=== PATIENT | female | born 1980 | race Caucasian/White ===

== ENCOUNTER → 2018-09-08 | Outpatient (CLI) | payer OTHER ==
[2018-09-08 16:21] LABS: Anion Gap 6.6 mmol/L (4.00-12.00); Calcium 9.8 mg/dL (8.7-10.3); Carbon Dioxide 26.4 mmol/L (21.6-31.8); Potassium 4.5 mmol/L (3.5-5.5)
== END | disposition home or self-care (01) ==
LOC: LABWHC1 08:57
PROVIDERS: ATTEND Urology
DX: N30.01 Acute cystitis with hematuria (principal)
CPT/HCPCS: 36415; 80048; 87086; 88108

== ENCOUNTER → 2018-11-02 | Outpatient (CLI) | payer OTHER ==
--- NOTE | 2018-11-02 12:38 | CT ---
EXAMINATION TYPE: CT urogram wo/w con DATE OF EXAM: 11/02/2018 COMPARISON: None HISTORY: 38-year-old female Blood in urine TECHNIQUE: Contiguous axial scanning of the abdomen and pelvis performed without and with IV Contrast , patient injected with 100 mL of Isovue 300. Delayed images through the kidneys and bladder were obt ained. Coronal/sagittal reconstructions performed. 3-D reconstructions generated on a dedicated [employer] workstation. CT DLP: 882.7 mGycm Automated exposure control for dose reduction was used. FINDINGS: Heart normal size without pericardial effusion. Lung bases clear without pleural effusion. Approximately 3 hypodense lesions within the liver measuring 1.1 cm, 0.9 cm, and 0.6 cm. These become smaller and less apparent on the more delayed scans suggesting possible small atypical hemangiomas. Portal venous system is patent. No biliary ductal dilatation. Gallbladder, adrenal glands, kidneys, and pancreas appear within normal limits. Tiny fatty umbilical hernia. Prominent fluid-filled small bowel loops throughout the abdomen. No dilated small bowel, free fluid, or free air. Mild overall stool burden. Normal appendix. No pericolonic inflammatory change. Uterus is anteverted. Both ovaries are visualized. Follicular change in the right ovary. Mild cul-de- sac free fluid likely physiologic. No suspicious filling defect identified within either renal collecting system. No suspicious renal le bryant or hydronephrosis. No nephrolithiasis identified. Only the distalmost aspects of the bilateral ureters are not opacified limiting their assessment. The posterior two thirds of the opacified bladder show no suspicious mural based filling defect. Bones: Mild facet arthropathy lower lumbar spine. IMPRESSION: 1. NO NEPHROLITHIASIS, SUSPICIOUS KIDNEY LESION, ABNORMAL FILLING DEFECT WITHIN THE RENAL COLLECTING SYSTEMS, OR ALONG THE COURSE OF EITHER URETER. ONLY THE DISTALMOST BILATERAL URETERS ARE NONOPACIFIED AND LIMITED. NO HYDRONEPHROSIS. 2. PROMINENT FLUID-FILLED SMALL BOWEL LOOPS THROUGHOUT THE ABDOMEN ARE NONSPECIFIC BUT COULD REFLECT A MILD GENERALIZED ILEUS OR ENTERITIS. 3. 3 HYPODENSE LESIONS WITHIN THE LIVER MEASURING UP TO 1.1 CM ARE NONSPECIFIC. ATYPICAL HEMANGIOMAS ARE FAVORED. 6 MONTH FOLLOW-UP ULTRASOUND CAN EXCLUDE ANY ENLARGING LESIONS. 4. MILD CUL-DE-SAC FREE FLUID LIKELY PHYSIOLOGIC.
== END | disposition home or self-care (01) ==
LOC: RADCTMAIN 10:22
PROVIDERS: ATTEND Urology
DX: R31.21 Asymptomatic microscopic hematuria (principal)
CPT/HCPCS: 74178; 74400; Q9967

== ENCOUNTER 2018-12-09 08:25 | Day surgery (SDC) | payer OTHER ==
[2018-12-04 13:09] VITALS: BMI 22.5
[~2018-12-09 08:25] MED LIST: LACTATED RINGERS 1,000 ML IV SCH; LIDOCAINE 1% 20 ML VIAL (10MG/ML) FOR IV START INTRADERMA PRN
[2018-12-09 09:12] VITALS: TEMP 98.7
[2018-12-09] MEDS ORDERED: LIDOCAINE 1% INJ 10MG/ML (20 ML MDV) ONE (09:33)
[2018-12-09] MEDS ORDERED: PROPOFOL 10 MG/ML 20 ML VIAL IV ONE (09:33)
--- NOTE | 2018-12-09 09:54 | P.PCN ---
Date of Procedure: 12/09/18 Procedure(s) Performed: Brief history: Patient is a pleasant 38-year-old white female scheduled for an elective upper endoscopy as well as colonoscopy as a part of evaluation of abdominal pain, lower abdominal cramping and alternating diarrhea and constipation of several years duration. Her symptoms have been progressively getting worse in the last 6 months. Procedure performed: Esophagogastroduodenoscopy with biopsy Colonoscopy and biopsy Preoperative diagnosis: Epigastric pain Lower abdominal pain and change in bowel habits Anesthesia: MAC Procedure: After informed consent was obtained from the patient was brought into the endoscopy unit and IV sedation was administered by anesthesia under continuous monitoring. Initially upper endoscopy was done. The Olympus GF 160 video endoscope was inserted inserted into the mouth and esophagus intubated without any difficulty and was gradually advanced into the stomach and duodenum and carefully examined. Biopsies were done from the duodenum to rule out celiac disease. The bulb and second part of the duodenum appeared normal. The scope was then withdrawn into the stomach adequately insufflated with air and upon careful examination the antrum had patchy areas of the prepyloric area and biopsies were done from this area. The body, cardia and fundus appeared normal. The scope was then withdrawn into the esophagus. The GE junction was located at 40 cm to the incisors. It appeared regular with no erythema erosions or ulcerations. Biopsies were done from the distal esophagus.Rest of the esophagus appeared normal. Patient tolerated the procedure well. At this time the patient continued to remain sedation. Initial digital rectal examination was normal. Olympus CF 160 video colonoscope was then inserted into the rectum and gradually advanced to the cecum without any difficulty. Careful examination was performed as the scope was gradually being withdrawn. The prep was excellent. Terminal ileum was intubated and 20 cm visualized and appeared normal. Random biopsies were done from the terminal ileum. The cecum, ascending colon, transverse colon, descending colon, sigmoid colon and rectum appeared normal. Retroflexion was performed in the rectum and no lesions were noted. random biopsies were done from ascending and descending colon to rule out microscopic/collagenous colitis. Patient tolerated the procedure well. Impression: 1. Upper endoscopy revealed minimal antral gastritis but no evidence of esophagitis or peptic ulcer disease. 2. Colonoscopy was essentially within normal limits with no evidence of colitis or colorectal neoplasia Recommendations: Findings of this examination were discussed with the patient as well a her family. She was advised to follow with the biopsy results. Her symptoms are suggestive of irritable bowel syndrome.. Advised to continue with a high-fiber diet and take fiber supplements a regular basis and regulate bowel movements.]
[2018-12-09 10:24] VITALS: BP 126/82; PULSE 76; RESP 18
== END 2018-12-09 10:52 | disposition home or self-care (01) ==
LOC: ORWHC2ENDO 08:25
PROVIDERS: ATTEND Internal Medicine Gastroenterology
DX: K29.50 Unspecified chronic gastritis without bleeding (principal); J45.909 Unspecified asthma, uncomplicated; K21.9 Gastro-esophageal reflux disease without esophagitis; Z88.1 Allergy status to other antibiotic agents; Z88.2 Allergy status to sulfonamides; R19.4 Change in bowel habit
CPT/HCPCS: 81025; 88305; 45380; 43239; J2001; J2704

== ENCOUNTER → 2018-12-15 | Outpatient (CLI) | payer OTHER ==
--- NOTE | 2018-12-15 12:18 | US ---
EXAMINATION TYPE: US abdomen complete DATE OF EXAM: 12/15/2018 COMPARISON: CT dated 11/02/2018 CLINICAL HISTORY: R10.84 ABD PAIN. EXAM MEASUREMENTS: Liver Length: 11.9 cm Gallbladder Wall: 0.2 cm CBD: 0.3 cm Spleen: 9.6 cm Right Kidney: 11.0 x 3.2 x 4.5 cm Left Kidney: 10.9 x 5.3 x 4.8 cm Pancreas: wnl Liver: hemangiomas seen on CT not identified on today's ultrasound, liver wnl Gallbladder: wnl Evidence for sonographic Nuñez's sign: No CBD: wnl Spleen: wnl Right Kidney: wnl Left Kidney: Inferior pole obscured by bowel gas Upper IVC: wnl Abd Aorta: wnl The liver is homogenous. The intrahepatic portion of the IVC and proximal abdominal aorta are within normal limits. There is no evidence of cholelithiasis. Common bile duct is unremarkable. The visu alized portions of the pancreas are homogenous. The spleen is unremarkable. Kidneys are symmetric a nd free of hydronephrosis. No renal lesions are seen. IMPRESSION: 1. The previously seen probable hemangiomas on the prior CT urogram dated 11/02/2018 are not seen on u ltrasound. 2. No sonographic evidence of cholelithiasis nor acute cholecystitis. Unremarkable abdominal ultrasou nd.
== END | disposition home or self-care (01) ==
LOC: RADUSWWP 10:42
PROVIDERS: ATTEND Family Medicine
DX: R10.84 Generalized abdominal pain (principal)
CPT/HCPCS: 76700

== ENCOUNTER → 2018-12-30 | Outpatient (CLI) | payer OTHER ==
--- NOTE | 2018-12-30 08:56 | NM ---
EXAMINATION TYPE: NM hepatobiliary w EF DATE OF EXAM: 12/30/2018 COMPARISON: NONE HISTORY: Abdominal pain TECHNIQUE: After the intravenous administration of 4.71 mCi Tc 99m Mebrofenin hepatobiliary scintigra phy is performed. Immediate images post injection. FINDINGS: There is satisfactory initial accumulation of tracer by the liver. The gallbladder is visualized wit hin 16 minutes. The small bowel activity is noted within 20 minutes. At one hour 8 ounces of oral e nsure plus is given to mimic CCK and gallbladder ejection fraction is calculated at 60 %, in the norm al range. Therefore there is no scintigraphic evidence of cystic or common bile duct obstruction to suggest acute cholecystitis or gallbladder dyskinesia. IMPRESSION: Exam is within normal limits.
== END | disposition home or self-care (01) ==
LOC: RADNMMAIN 06:52
PROVIDERS: ATTEND Family Medicine
DX: R10.84 Generalized abdominal pain (principal)
CPT/HCPCS: 78226; A9537

== ENCOUNTER → 2019-04-05 | Outpatient (CLI) | payer SELFPAY | END | disposition home or self-care (01) | LOC: LABWHC1 08:40 | PROVIDERS: ATTEND Family Medicine | DX: K20.0 Eosinophilic esophagitis (principal) | CPT/HCPCS: 36415 ==

== ENCOUNTER → 2019-10-22 | Outpatient (CLI) | payer OTHER ==
--- NOTE | 2019-10-26 10:28 | MM ---
Reason for exam: screening (asymptomatic). Baseline mammogram. Physical Findings: Nurse did not find any significant physical abnormalities on exam. MG Screening Mammo w CAD Bilateral CC, MLO, and XCCL view(s) were taken. The breast tissue is heterogeneously dense. This may lower the sensitivity of mammography. There is no discrete abnormality. Central right CC view does not persist on 3D. Subareolar left MLO asymmetry does not persist on 3D images. These results were verbally communicated with the patient and result sheet given to the patient on 10/22/19. ASSESSMENT: Benign, BI-RAD 2 RECOMMENDATION: Routine screening mammogram of both breasts in 1 year.
== END | disposition home or self-care (01) ==
LOC: RADMAMWWP 11:10
PROVIDERS: ATTEND Physician Assistant
DX: Z12.31 Encounter for screening mammogram for malignant neoplasm of breast (principal)
CPT/HCPCS: 77067

== ENCOUNTER → 2020-07-24 | Outpatient (CLI) | payer OTHER ==
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
== END ==
LOC: RADUSWWP 07:37
DX: K76.9 Liver disease, unspecified (principal)
CPT/HCPCS: 76700

== ENCOUNTER → 2020-10-27 | Outpatient (CLI) | payer OTHER ==
--- NOTE | 2020-10-31 08:44 | MM ---
Reason for exam: screening (asymptomatic). Last mammogram was performed 1 year ago. Physical Findings: A clinical breast exam by your physician is recommended on an annual basis and results should be correlated with mammographic findings. MG 3D Screening Mammo W/Cad Bilateral CC and MLO view(s) were taken. Prior study comparison: October 22, 2019, bilateral MG screening mammo w CAD. The breast tissue is heterogeneously dense. This may lower the sensitivity of mammography. Partially obscured nodularity lateral right CC view becomes apparent on 3D images. ASSESSMENT: Incomplete: need additional imaging evaluation, BI-RAD 0 RECOMMENDATION: Special view mammogram of the right breast. (3D) If lesion persists on supplemental views, image directed ultrasound is recommended. [facility] will attempt to contact patient to return for supplemental views and ultrasound if indicated.
== END | disposition home or self-care (01) ==
LOC: RADMAMWWP 09:54
PROVIDERS: ATTEND Family Medicine
DX: Z12.31 Encounter for screening mammogram for malignant neoplasm of breast (principal)
CPT/HCPCS: 77063; 77067

== ENCOUNTER → 2020-11-02 | Outpatient (CLI) | payer OTHER ==
--- NOTE | 2020-11-02 08:47 | MM ---
Reason for exam: additional evaluation requested from abnormal screening. Last mammogram was performed less than 1 month ago. Physical Findings: Nurse did not find any significant physical abnormalities on exam. MG 3D Work Up W/Cad RT Spot compression CC and LM view(s) were taken of the right breast. Prior study comparison: October 27, 2020, bilateral MG 3d screening mammo w/cad. October 22, 2019, bilateral MG screening mammo w CAD. The breast tissue is heterogeneously dense. This may lower the sensitivity of mammography. Previously seen right lateral asymmetry pliable and presumably represented overlapping fibroglandular tissue. These results were verbally communicated with the patient and result sheet given to the patient on 11/02/20. ASSESSMENT: Negative, BI-RAD 1 RECOMMENDATION: Return to routine screening mammogram schedule for both breasts.
== END | disposition home or self-care (01) ==
LOC: RADMAMWWP 07:33
PROVIDERS: ATTEND Family Medicine
DX: R92.8 Other abnormal and inconclusive findings on diagnostic imaging of breast (principal)
CPT/HCPCS: 77061; 77065

== ENCOUNTER → 2020-12-27 | Outpatient (CLI) | payer OTHER ==
--- NOTE | 2020-12-27 08:30 | US ---
EXAMINATION TYPE: US liver DATE OF EXAM: 12/27/2020 COMPARISON: US 07/24/20 CLINICAL HISTORY: R10.84 Generalized abdominal pain. EXAM MEASUREMENTS: Liver Length: 15.5 cm Gallbladder Wall: 0.1 cm CBD: 0.3 cm Right Kidney: 11.8 x 4.7 x 3.5 cm Pancreas: wnl Liver: Echogenic area seen again = 1.7 x 1.5 x 1.5 cm Gallbladder: wnl Evidence for sonographic Nuñez's sign: No CBD: wnl Right Kidney: No hydronephrosis or masses seen IMPRESSION: Echogenic area within the liver is unchanged and may reflect hemangioma.
== END | disposition home or self-care (01) ==
LOC: RADUSWWP 07:23
DX: R93.2 Abnormal findings on diagnostic imaging of liver and biliary tract (principal)
CPT/HCPCS: 76705

== ENCOUNTER 2022-11-02 13:00 | Emergency (ER) | payer OTHER ==
[2022-11-02 13:11] VITALS: BP 131/87; PULSE 89; TEMP 97.8
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
[2022-11-02] MEDS ORDERED: cefTRIAXone 1,000 MG VIAL (IM USE) IM STA (14:24)
[2022-11-02] MEDS ORDERED: DOXYCYCLINE 100 MG CAP PO STA (14:24)
[2022-11-02] MEDS ORDERED: metroNIDAZOLE 500 MG TAB PO STA (14:25)
[2022-11-02 14:28] LABS: Appearance,Urine Cloudy (Clear); Bacteria,Urine Rare /hpf; Bilirubin,Urine Negative (Negative); Blood,Urine Negative (Negative); Color,Urine Light Yellow; Glucose,Urine (UA) Negative (Negative); Ketones,Urine 1+ (Negative); Leukocyte Esterase,Urine Moderate (Negative); Mucus,Urine Occasional /hpf; Nitrite,Urine Negative (Negative); PH, Urine 5.5 (5.0-8.0); Protein,Urine Negative (Negative); RBC,Urine 1 /hpf (0-5); Specific Gravity,Urine 1.008 (1.001-1.035); Squamous Epithelial Cell,Urine 4 /hpf (0-4); Urobilinogen,Urine <2.0 mg/dL (<2.0); WBC,Urine 5 /hpf (0-5)
[2022-11-02 14:59] VITALS: RESP 16
[2022-11-04 16:14] LABS: N. gonorrhoeae,PCR Negative (Negative)
[2022-11-04 16:28] LABS: C. trachomatis,PCR Negative (Negative)
== END 2022-11-02 14:58 | disposition home or self-care (01) ==
LOC: EC 13:00
DX: T74.21XA Adult sexual abuse, confirmed, initial encounter (principal); F31.9 Bipolar disorder, unspecified; F41.9 Anxiety disorder, unspecified; K21.9 Gastro-esophageal reflux disease without esophagitis; M19.90 Unspecified osteoarthritis, unspecified site; F17.290 Nicotine dependence, other tobacco product, uncomplicated; Z79.899 Other long term (current) drug therapy; Z88.0 Allergy status to penicillin; Z88.1 Allergy status to other antibiotic agents; Z88.2 Allergy status to sulfonamides; Z88.8 Allergy status to other drugs, medicaments and biological substances
CPT/HCPCS: 81001; 81025; 87491; 87591; 99284; 96372; J0696

== ENCOUNTER 2023-03-07 01:47 | Emergency (ER) | payer OTHER ==
[2023-03-07 02:04] VITALS: BP 132/89; PULSE 79; RESP 16; TEMP 97.6
[2023-03-07] MEDS ORDERED: DEXAMETHASONE SOD PHOSPHATE 10 MG/ML 1 ML VIAL IM STA (02:23)
--- NOTE | 2023-03-07 02:26 | ED ---
General Adult HPI - General Chief complaint: Skin/Abscess/Foreign Body Stated complaint: Rash Time Seen by Provider: 03/07/23 02:14 Source: patient, RN notes reviewed, old records reviewed Mode of arrival: ambulatory Limitations: no limitations - History of Present Illness Initial comments: 42-year-old female with chief complaint of rash. Rash is erythematous, raised, very itchy. Patient currently on metronidazole for BV. She states she has one more dose remaining. She does not have a prior known ALLERGY to metronidazole but this is the only new medication that she is on. No difficulty breathing. No vomiting. No fever. - Related Data Home Medications Medication Instructions Recorded Confirmed Albuterol Inhaler [Ventolin Hfa 1 - 2 puff INHALATION RT-Q6H PRN 12/04/18 12/09/18 Inhaler] Azelastine ? Nasal [place] 2 sprays EA NOSTRIL BID 12/04/18 Cranberry W Vit C 1 tab PO DAILY 12/04/18 Ibuprofen [Advil] 400 mg PO DIRECTED PRN 12/04/18 12/09/18 Loratadine [Claritin] 10 mg PO DAILY 12/04/18 12/09/18 Omeprazole 20 mg PO BID-W/MEALS 12/04/18 12/09/18 Previous Rx's Medication Instructions Recorded metroNIDAZOLE [Flagyl] 500 mg PO BID #14 tab 06/15/22 Doxycycline [Vibramycin] 100 mg PO BID 7 Days #14 capsule 11/02/22 metroNIDAZOLE [Flagyl] 500 mg PO BID #14 tab 11/02/22 Allergies Allergy/AdvReac Type Severity Reaction Status Date / Time sulfamethoxazole Allergy Unknown Hives- Verified 03/07/23 01:48 [From Bactrim] takes with benadryl trimethoprim [From Bactrim] Allergy Unknown Hives- Verified 03/07/23 01:48 takes with benadryl ciprofloxacin Allergy Anaphylaxis Verified 03/07/23 01:48 amoxicillin [From Augmentin] AdvReac Unknown Diarrhea Verified 03/07/23 01:48 clavulanic acid AdvReac Unknown Diarrhea Verified 03/07/23 01:48 [From Augmentin] Review of Systems ROS Statement: Those systems with pertinent positive or pertinent negative responses have been documented in the HPI. ROS Other: All systems not noted in ROS Statement are negative. Past Medical History Past Medical History: Asthma, GERD/Reflux, Osteoarthritis (OA) Additional Past Medical History / Comment(s): exercise induced asthma, seasonal allergies, Hx of frequent UTI's., states having constipation/diarrhea, stomach pain and blood in stool. History of Any Multi-Drug Resistant Organisms: None Reported Past Surgical History: Tonsillectomy, Tubal Ligation, Uterine Ablation Additional Past Surgical History / Comment(s): D and C 12/27/22 Past Anesthesia/Blood Transfusion Reactions: No Reported Reaction, Motion Sickness Past Psychological History: Anxiety, Bipolar, Depression, PTSD Smoking Status: Vaper Past Alcohol Use History: Occasional Past Drug Use History: None Reported - Past Family History Mother Family Medical History: No Reported History General Exam Limitations: no limitations General appearance: alert, in no apparent distress Head exam: Present: atraumatic, normocephalic Eye exam: Present: normal appearance, PERRL ENT exam: Present: normal exam Neck exam: Present: normal inspection. Absent: tenderness, meningismus Respiratory exam: Present: normal lung sounds bilaterally. Absent: respiratory distress, wheezes Cardiovascular Exam: Present: regular rate, normal rhythm GI/Abdominal exam: Present: soft. Absent: distended, tenderness, guarding Neurological exam: Present: alert, oriented X3 Skin exam: Present: warm, dry, rash, urticaria (Urticarial rash on the extremities and torso) Course Vital Signs 03/07/23 01:48 Temperature 97.6 F Pulse Rate 79 Respiratory 16 Rate Blood Pressure 132/89 O2 Sat by Pulse 97 Oximetry Medical Decision Making - Medical Decision Making Was pt. sent in by a medical professional or institution (, PA, FURNACE CHECKER, urgent care, hospital, or intermediate...) When possible be specific @ -No Did you speak to anyone other than the patient for history (EMS, parent, family, police, friend...)? What history was obtained from this source @ -No Did you review nursing and triage notes (agree or disagree)? Why? @ -I reviewed and agree with nursing and triage notes Were old charts reviewed (outside hosp., previous admission, EMS record, old EKG, old radiological studies, urgent care reports/EKG's, intermediate records)? Report findings @ -No old charts were reviewed Differential Diagnosis (chest pain, altered mental status, abdominal pain women, abdominal pain men, vaginal bleeding, weakness, fever, dyspnea, syncope, headache, dizziness, GI bleed, back pain, seizure, CVA, palpatations, mental health, musculoskeletal)? @ -[Drug reaction, urticaria, Greyson Dorman's EKG interpreted by me (3pts min.). @ -As above X-rays interpreted by me (1pt min.). @ -None done CT interpreted by me (1pt min.). @ -None done U/S interpreted by me (1pt. min.). @ -None done What testing was considered but not performed or refused? (CT, X-rays, U/S, labs)? Why? @ -None What meds were considered but not given or refused? Why? @ -None Did you discuss the management of the patient with other professionals (professionals i.e. , PA, FURNACE CHECKER, lab, RT, psych nurse, social worker clinical, rn training, teacher, supply requirements officer, disease case manager)? Give summary @ -No Was smoking cessation discussed for >3mins.? @ -No Was critical care preformed (if so, how long)? @ -No Were there social determinants of health that impacted care today? How? (Homelessness, low income, unemployed, alcoholism, drug addiction, transportation, low edu. Level, literacy, decrease access to med. care, [facility], rehab)? @ -No Was there de-escalation of care discussed even if they declined (Discuss DNR or withdrawal of care, Hospice)? DNR status @ -No What co-morbidities impacted this encounter? (DM, HTN, Smoking, COPD, CAD, Cancer, CVA, ARF, Chemo, Hep., AIDS, mental health diagnosis, sleep apnea, morbid obesity)? @ -None Was patient admitted / discharged? Hospital course, mention meds given and route, prescriptions, significant lab abnormalities, going to OR and other pertinent info. @ Patient will discontinue metronidazole. She's given a dose of steroids in the emergency department and will take Benadryl when she gets home. She is given strict return parameters will monitor closely and follow-up with her primary care provider. Undiagnosed new problem with uncertain prognosis? @ -No Drug Therapy requiring intensive monitoring for toxicity (Heparin, Nitro, Insulin, Cardizem)? @ -No Were any procedures done? @ -No Diagnosis/symptom? @ -Hives Acute, or Chronic, or Acute on Chronic? @ -[Acute Uncomplicated (without systemic symptoms) or Complicated (systemic symptoms)? @ -default Side effects of treatment? @ -No Exacerbation, Progression, or Severe Exacerbation? @ -No Poses a threat to life or bodily function? How? (Chest pain, [place], [place], pneumonia, PE, COPD, DKA, ARF, appy, cholecystitis, CVA, Diverticulitis, Homicidal, Suicidal, threat to staff... and all critical care pts) @ -[Low risk at this time Disposition Clinical Impression: Urticaria Disposition: HOME SELF-CARE Condition: Good Is patient prescribed a controlled substance at d/c from ED?: No Referrals: [facility],Clinic [Primary Care Provider] - 1-2 days Time of Disposition: 02:26
== END 2023-03-07 02:30 | disposition home or self-care (01) ==
LOC: EC 01:47
DX: L50.9 Urticaria, unspecified (principal); J45.909 Unspecified asthma, uncomplicated; K21.9 Gastro-esophageal reflux disease without esophagitis; F17.290 Nicotine dependence, other tobacco product, uncomplicated; M19.90 Unspecified osteoarthritis, unspecified site; Z79.1 Long term (current) use of non-steroidal anti-inflammatories (NSAID); Z79.899 Other long term (current) drug therapy; Z88.2 Allergy status to sulfonamides; Z88.6 Allergy status to analgesic agent; Z88.8 Allergy status to other drugs, medicaments and biological substances; Z88.0 Allergy status to penicillin; Z88.1 Allergy status to other antibiotic agents; Z86.59 Personal history of other mental and behavioral disorders
CPT/HCPCS: 99282; 96372; J1100

== ENCOUNTER 2023-03-29 02:45 | Emergency (ER) | payer OTHER ==
[2023-03-29 03:06] VITALS: BP 133/94; PULSE 102; RESP 18; TEMP 98.2
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
== END 2023-03-29 03:54 | disposition home or self-care (01) ==
LOC: EC 02:45
DX: F10.129 Alcohol abuse with intoxication, unspecified (principal); K21.9 Gastro-esophageal reflux disease without esophagitis; J45.909 Unspecified asthma, uncomplicated; F17.290 Nicotine dependence, other tobacco product, uncomplicated; Z79.899 Other long term (current) drug therapy; Z88.0 Allergy status to penicillin; Z88.1 Allergy status to other antibiotic agents; Z88.2 Allergy status to sulfonamides
CPT/HCPCS: 99282

== ENCOUNTER → 2023-06-27 | Outpatient (CLI) | payer OTHER ==
--- NOTE | 2023-06-30 19:37 | MM ---
Reason for Exam: Screening (asymptomatic). Last screening mammogram was performed 12 month(s) ago. Patient History: Menarche at age 14. First Full-Term at age 20. Premenopausal. Patient has history of breast feeding. Risk Values: Crista 5 year model risk: 0.6%. NCI Lifetime model risk: 8.0%. Prior Study Comparison: 10/27/2020 Bilateral Screening Mammogram, [facility]. 11/02/2020 Right Diagnostic Mammogram, [facility]. 06/18/2022 Bilateral MG screening mammo w CAD, [facility]. Tissue Density: The breast tissue is heterogeneously dense. This may lower the sensitivity of mammography. Findings: Analyzed By CAD. There is no suspicious group of microcalcifications or new suspicious mass in either breast. Overall Assessment: Negative, BI-RAD 1 Management: Screening Mammogram of both breasts in 1 year. Further clinical management of patient's bilateral nipple tenderness. Patient should continue monthly self-breast exams. A clinical breast exam by your physician is recommended on an annual basis. This exam should not preclude additional follow-up of suspicious palpable abnormalities. Note on Crista scores and lifetime risk: 1. A Crista score greater than 3% is considered moderate risk. If this is the case, consider specialist referral to assess eligibility for a risk reducing agent. 2. If overall lifetime risk for the development of breast cancer is 20% or higher, the patient may qualify for future screening with alternating mammogram and breast MRI. Electronically signed and approved by: Lg Hernandez M.D. Radiologist
== END | disposition home or self-care (01) ==
LOC: RADMAMWWP 11:06
DX: Z12.31 Encounter for screening mammogram for malignant neoplasm of breast (principal)
CPT/HCPCS: 77063; 77067

== ENCOUNTER → 2024-10-28 | Outpatient (CLI) | payer OTHER ==
--- NOTE | 2024-10-28 14:59 | MM ---
Reason for Exam: Screening (asymptomatic). Last mammogram was performed 1 year(s) and 4 month(s) ago. Patient History: Menarche at age 14. First Full-Term at age 20. Premenopausal. Patient has history of breast feeding. Risk Values: Crista 5 year model risk: 0.7%. NCI Lifetime model risk: 7.9%. Prior Study Comparison: 11/02/2020 Right Diagnostic Mammogram, [facility]. 06/18/2022 Bilateral MG screening mammo w CAD, [facility]. 06/27/2023 Bilateral MG 3D screening mammo w/cad, [facility]. Tissue Density: The breasts are heterogeneously dense, which may obscure small masses. Findings: Analyzed By CAD. Medial asymmetric density right breast does not persist on delayed images compatible with superimposition shadow. There is no suspicious group of microcalcifications or new suspicious mass in either breast. Overall Assessment: Benign, BI-RAD 2 Management: Screening Mammogram of both breasts in 1 year. Patient should continue monthly self-breast exams. A clinical breast exam by your physician is recommended on an annual basis. This exam should not preclude additional follow-up of suspicious palpable abnormalities. Note on Crista scores and lifetime risk: 1. A Crista score greater than 3% is considered moderate risk. If this is the case, consider specialist referral to assess eligibility for a risk reducing agent. 2. If overall lifetime risk for the development of breast cancer is 20% or higher, the patient may qualify for future screening with alternating mammogram and breast MRI. [facility], , 10/28/2024 2:56 PM. Electronically signed and approved by: Lg Hernandez M.D. Radiologist
== END | disposition home or self-care (01) ==
LOC: RADMAMWWP 11:00
PROVIDERS: ATTEND Family Medicine
DX: Z12.31 Encounter for screening mammogram for malignant neoplasm of breast (principal); R92.333 Mammographic heterogeneous density, bilateral breasts
CPT/HCPCS: 77063; 77067

== ENCOUNTER 2024-11-25 07:12 | Emergency (ER) | payer OTHER ==
[2024-11-25 07:21] VITALS: RESP 16
[2024-11-25] MEDS ORDERED: LORazepam 1 MG/0.5 ML VIAL IV PRN ×3 (07:41)
[2024-11-25] MEDS: SODIUM CHLORIDE 0.9% 1,000 ML IV STA ×2 (07:50→07:55)
[2024-11-25 07:51] LABS: Basophils # (A) 0.06 10*3/uL (0.00-0.10); Basophils % (A) 0.6 %; Eosinophils # (A) 0.55 10*3/uL (0.04-0.35); Eosinophils % (A) 5.7 %; HCT 41.8 % (37.2-46.3); HGB 14.5 g/dL (12.0-15.0); Lymphocytes # (A) 4.05 10*3/uL (0.90-5.00); Lymphocytes % (A) 42.1 %; MCH 33.8 pg (27.0-32.0); MCHC 34.7 g/dL (32.0-37.0); MCV 97.4 fL (80.0-97.0); Monocytes # (A) 0.63 10*3/uL (0.20-1.00); Monocytes % (A) 6.6 %; Neutrophils # (A) 4.30 10*3/uL (1.80-7.70); Neutrophils % (A) 44.8 %; Platelet Count 306 10*3/uL (140-440); RBC 4.29 10*6/uL (4.10-5.20); RDW 11.8 % (11.5-14.5); WBC 9.61 10*3/uL (4.50-10.00)
[2024-11-25] MEDS: ONDANSETRON 4 MG/2 ML VIAL IVP STA (07:52)
[2024-11-25] MEDS: LORazepam 1 MG/0.5 ML VIAL IV STA (07:52)
[2024-11-25] MEDS: KETOROLAC 15 MG/ML 1 ML VIAL IVP STA (07:52)
[2024-11-25] MEDS: ASPIRIN 81 MG PO STA (07:53)
[2024-11-25] MEDS: THIAMINE 100 MG/ML 2 ML VIAL IM STA (07:53)
[2024-11-25 08:05] LABS: INR 1.0 (<1.2); Partial Thromboplastin Time 26.2 sec (22.0-30.0); Prothrombin Time 11.3 sec (10.0-12.5)
--- NOTE | 2024-11-25 08:05 | ED ---
General Adult HPI - General Chief complaint: Chest Pain Stated complaint: Chest pain/NV Time Seen by Provider: 11/25/24 07:30 Source: patient, RN notes reviewed, old records reviewed Mode of arrival: ambulatory Limitations: no limitations - History of Present Illness Initial comments: 44-year-old female who presents emergency department with multiple complaints. Patient appears to be in alcohol withdrawals, and is complaining of reproducible chest wall pain, nausea, vomiting, headaches, tremors. States worsening anxiety as well. He has gone through significant alcohol withdrawals in the past per patient. Last drink was just over 24 hours ago. States she abuses alcohol heavily daily. Endorses nausea as well as nonbilious nonbloody emesis. Denies any diarrhea or constipation. Denies any fevers or chills or cough. No recent long distance travel. Describes the chest discomfort as a sharp pain located just to the left of sternum that is worse with movement of her thorax as well as her left arm. States that it hurts worse with a deep inspiration. Recently had a mammogram and attributed the pain to this she was having some discomfort more laterally but now is having more discomfort in the anterior aspect. States she noticed it at approximately midnight last night. Presents this morning for further evaluation. - Related Data Home Medications Medication Instructions Recorded Confirmed Albuterol Inhaler [Ventolin Hfa 1 - 2 puff INHALATION RT-Q6H PRN 12/04/18 12/09/18 Inhaler] Azelastine ? Nasal [place] 2 sprays EA NOSTRIL BID 12/04/18 Cranberry W Vit C 1 tab PO DAILY 12/04/18 Ibuprofen [Advil] 400 mg PO DIRECTED PRN 12/04/18 12/09/18 Loratadine [Claritin] 10 mg PO DAILY 12/04/18 12/09/18 Omeprazole 20 mg PO BID-W/MEALS 12/04/18 12/09/18 Previous Rx's Medication Instructions Recorded metroNIDAZOLE [Flagyl] 500 mg PO BID #14 tab 06/15/22 Doxycycline [Vibramycin] 100 mg PO BID 7 Days #14 capsule 11/02/22 metroNIDAZOLE [Flagyl] 500 mg PO BID #14 tab 11/02/22 chlordiazePOXIDE HCl [Librium] See Rx Instructions .ROUTE 11/25/24 .COMPLEX 5 Days #18 capsule clindamycin HCL 300 mg PO BID 7 Days #14 cap 11/25/24 Allergies Allergy/AdvReac Type Severity Reaction Status Date / Time sulfamethoxazole Allergy Unknown Hives- Verified 03/29/23 02:53 [From Bactrim] takes with benadryl trimethoprim [From Bactrim] Allergy Unknown Hives- Verified 03/29/23 02:53 takes with benadryl ciprofloxacin Allergy Anaphylaxis Verified 03/29/23 02:53 amoxicillin [From Augmentin] AdvReac Unknown Diarrhea Verified 03/29/23 02:53 clavulanic acid AdvReac Unknown Diarrhea Verified 03/29/23 02:53 [From Augmentin] metronidazole AdvReac Rash/Hives Verified 03/29/23 02:53 Review of Systems ROS Statement: Those systems with pertinent positive or pertinent negative responses have been documented in the HPI. Review of Systems: CONST: Denies fever EYES: Denies blurry vision ENT: Denies nasal congestion C/V: Endorses chest wall pain RESP: Denies shortness of breath GI: Endorses nausea : Denies dysuria SKIN: Denies rash. MSK: Denies joint pain. NEURO: Endorses headache, tremors ROS Other: All systems not noted in ROS Statement are negative. Past Medical History Past Medical History: Asthma, GERD/Reflux, Osteoarthritis (OA) Additional Past Medical History / Comment(s): exercise induced asthma, seasonal allergies, Hx of frequent UTI's., states having constipation/diarrhea, stomach pain and blood in stool. History of Any Multi-Drug Resistant Organisms: None Reported Past Surgical History: Tonsillectomy, Tubal Ligation, Uterine Ablation Additional Past Surgical History / Comment(s): D and C 12/27/22 Past Anesthesia/Blood Transfusion Reactions: No Reported Reaction, Motion Sickness Past Psychological History: Anxiety, Bipolar, Depression, PTSD Smoking Status: Vaper Past Alcohol Use History: Abuse Past Drug Use History: None Reported - Past Family History Mother Family Medical History: No Reported History General Exam - General Exam Comments Initial Comments: General: Appears anxious and had moderate alcohol withdrawals with extremity tremors, tongue fasciculations, anxiety, headache. HEAD: Normal with no signs of head trauma. EYES: PERRLA, EOMI, conjunctiva normal, no discharge. ENT: Hearing grossly intact, normal oropharynx. RESPIRATORY: Clear breath sounds bilaterally. No wheezes, rales, or rhonchi. C/V: Regular rate and rhythm. S1 and S2 auscultated, no edema, peripheral pulses 2+ and intact throughout. Chest pain reproducible on palpation just to the left of sternum as well as with passive and active movement of the left arm and torso. ABD: Abd is soft, nontender, nondistended EXT: Normal range of motion, no obvious deformity SKIN: No rashes or lesions observed on exposed skin. NEURO: Alert and oriented x 4. Cranial nerves II-XII intact. No focal sensory or strength deficits. Peripheral tremors. Tongue fasciculations. Limitations: no limitations Course Vital Signs 11/25/24 11/25/24 07:18 08:21 Temperature 97.8 F Pulse Rate 85 65 Respiratory 16 16 Rate Blood Pressure 137/92 120/66 O2 Sat by Pulse 98 98 Oximetry Medical Decision Making - Medical Decision Making Was pt. sent in by a medical professional or institution (, PA, [employer], urgent care, hospital, or [facility]...) When possible be specific @ -No Did you speak to anyone other than the patient for history (EMS, parent, family, police, friend...)? What history was obtained from this source @ -No Did you review nursing and triage notes (agree or disagree)? Why? @ -I reviewed and agree with nursing and triage notes Were old charts reviewed (outside hosp., previous admission, EMS record, old EKG, old radiological studies, urgent care reports/EKG's, [facility] records)? Report findings @ -Today's EKG compared with EKG from September 2015 which revealed no significant acute change. Differential Diagnosis (chest pain, altered mental status, abdominal pain women, abdominal pain men, vaginal bleeding, weakness, fever, dyspnea, syncope, headache, dizziness, GI bleed, back pain, seizure, CVA, palpatations, mental health, musculoskeletal)? @ -Differential Chest Pain: Stable Angina, Unstable Angina, STEMI, NSTEMI Aortic Dissection, Pneumothorax, Musculoskeletal, Esophageal Spasm GERD, Cholecystitis, Pancreatitis, Zoster, this is not meant to be an all-inclusive list. Also includes alcohol withdrawals EKG interpreted by me (3pts min.). @ -As above X-rays interpreted by me (1pt min.). @ -Chest x-ray shows no obvious acute cardiopulmonary process. CT interpreted by me (1pt min.). @ -None done U/S interpreted by me (1pt. min.). @ -None done What testing was considered but not performed or refused? (CT, X-rays, U/S, labs)? Why? @ -None What meds were considered but not given or refused? Why? @ -None Did you discuss the management of the patient with other professionals (professionals i.e. Dr., PA, [employer], lab, RT, psych nurse, director of social work, core drill operator helper, teacher, financial aids officer, case managers)? Give summary @ -No Was smoking cessation discussed for >3mins.? @ -No Was critical care preformed (if so, how long)? @ -No Were there social determinants of health that impacted care today? How? (Homelessness, low income, unemployed, alcoholism, drug addiction, transpo rtation, low edu. Level, literacy, decrease access to med. care, care home, rehab)? @ -No Was there de-escalation of care discussed even if they declined (Discuss DNR or withdrawal of care, Hospice)? DNR status @ -No What co-morbidities impacted this encounter? (DM, HTN, Smoking, COPD, CAD, Cancer, CVA, ARF, Chemo, Hep., AIDS, mental health diagnosis, sleep apnea, morbid obesity)? @ -Alcohol abuse Was patient admitted / discharged? Hospital course, mention meds given and route, prescriptions, significant lab abnormalities, going to OR and other pertinent info. @ -Based on patient's presentation physical exam, presents emergency department complaining of chest pain but seems to be more of a chest wall pain with alcohol withdrawals. It is pleuritic in nature. We will obtain cardiac rule out labs as well as alcohol drawl labs. Patient will be symptomatically treated with IV fluids, Ativan, Toradol, aspirin. Patient was in agreement this plan. Vitals are within acceptable limits. EKG shows no signs of acute ischemia.Chest x-ray unremarkable. Laboratory studies negative for any obvious acute process including normal D-dimer, undetectable troponin. Urinalysis has mucus but no obvious UTI. Trichomonas negative. Chlamydia and gonorrhea pending. On reevaluation, patient is feeling improved. Patient did receive morphine for the chest wall discomfort. I discussed with her that I do believe since the chest discomfort has been ongoing for nearly 10 hours at this point with normal workup and her age that she is safe for discharge home and she was in agreement. She is feeling improved. I do attribute much of her symptoms to alcohol withdrawals. BENJA is improved on this evaluation following 1 dose of Ativan. I did offer admission for chest pain observation however patient declined which I think is reasonable considering it is likely chest wall pain based on clinical e xam and workup. Patient will be discharged home on Librium prescription. She did reveal to me that concern for possible bacterial vaginosis. After discussion, decision to defer pelvic exam at this time. Patient will be clinically treated as she recently completed a course of antibiotics for it but does not believe that it completely improved her symptoms. She will be started on clindamycin as she has a reaction of Flagyl. She was in agreement this plan. I will provide the patient with a prescription for Librium taper, clindamycin. I instructed the patient to follow up with their PCP in the next 1-3 days.. I explained that the patient should return to the emergency department if they experience any worsening symptoms. Strict return precautions were discussed with the patient. The patient expressed understanding of these instructions. I answered all questions that the patient had. The patient was discharged home in good condition with their prescriptions and follow up information. Undiagnosed new problem with uncertain prognosis? @ -No Drug Therapy requiring intensive monitoring for toxicity (Heparin, Nitro, Insulin, Cardizem)? @ -No Were any procedures done? @ -No Diagnosis/symptom? @ -Alcohol withdrawal, chest wall pain, bacterial vaginosis Acute, or Chronic, or Acute on Chronic? @ -Acute Uncomplicated (without systemic symptoms) or Complicated (systemic symptoms)? @ -Complicated Side effects of treatment? @ -None Exacerbation, Progression, or Severe Exacerbation] @ -No Poses a threat to life or bodily function? @ -Unlikely at this time - Lab Data Result diagrams: 11/25/24 07:43 11/25/24 07:43 Lab Results 11/25/24 11/25/24 11/25/24 Range/Units 07:43 07:43 07:43 WBC 9.61 (4.50-10.00) 10*3/uL RBC 4.29 (4.10-5.20) 10*6/uL Hgb 14.5 (12.0-15.0) g/dL Hct 41.8 (37.2-46.3) % MCV 97.4 H (80.0-97.0) fL MCH 33.8 H (27.0-32.0) pg MCHC 34.7 (32.0-37.0) g/dL Plt Count 306 (140-440) 10*3/uL MPV 10.2 (9.5-12.2) fL Immature Gran % (Auto) 0.2 % Neutrophils % 44.8 % Lymphocytes % 42.1 % Monocytes % 6.6 % Eosinophils % 5.7 % Basophils % 0.6 % Immature Gran # 0.02 (0.00-0.04) 10*3/uL Neutrophils # 4.30 (1.80-7.70) 10*3/uL Lymphocytes # 4.05 (0.90-5.00) 10*3/uL Monocytes # 0.63 (0.20-1.00) 10*3/uL Eosinophils # 0.55 H (0.04-0.35) 10*3/uL Basophils # 0.06 (0.00-0.10) 10*3/uL PT 11.3 (10.0-12.5) sec INR 1.0 (<1.2) APTT 26.2 (22.0-30.0) sec D-Dimer 0.19 (<0.60) mg/L FEU Sodium 138 (137-145) mmol/L Potassium 3.8 (3.5-5.1) mmol/L Chloride 108 H (98-107) mmol/L Carbon Dioxide 20 L (22-30) mmol/L Anion Gap 10 mmol/L BUN 13 (7-17) mg/dL Creatinine 0.82 (0.52-1.04) mg/dL Est GFR (CKD-EPI)AfAm >90 (>60 ml/min/1.73 sqM) Est GFR (CKD-EPI)NonAf 87 (>60 ml/min/1.73 sqM) Glucose 96 (74-99) mg/dL Calcium 9.5 (8.4-10.2) mg/dL Magnesium 1.9 (1.6-2.3) mg/dL Total Bilirubin 1.4 H (0.2-1.3) mg/dL AST 24 (14-36) U/L ALT 15 (4-34) U/L Alkaline Phosphatase 47 (38-126) U/L Troponin I (0.000-0.034) ng/mL NT-Pro-B Natriuret Pep 34 pg/mL Total Protein 7.2 (6.3-8.2) g/dL Albumin 4.6 (3.5-5.0) g/dL Lipase 106 (23-300) U/L Urine Color Urine Appearance (Clear) Urine pH (5.0-8.0) Ur Specific [place] (1.001-1.035) Urine Protein (Negative) Urine Glucose (UA) (Negative) Urine Ketones (Negative) Urine Blood (Negative) Urine Nitrite (Negative) Urine Bilirubin (Negative) Urine Urobilinogen (<2.0) mg/dL Ur Leukocyte Esterase (Negative) Urine RBC (0-5) /hpf Urine WBC (0-5) /hpf Ur Squamous Epith Cells (0-4) /hpf Urine Mucus (None) /hpf Serum Alcohol <10 mg/dL Trichomonas Ag (Rapid) (Negative) 11/25/24 11/25/24 11/25/24 Range/Units 07:43 08:34 08:34 WBC (4.50-10.00) 10*3/uL RBC (4.10-5.20) 10*6/uL Hgb (12.0-15.0) g/dL Hct (37.2-46.3) % MCV (80.0-97.0) fL MCH (27.0-32.0) pg MCHC (32.0-37.0) g/dL Plt Count (140-440) 10*3/uL MPV (9.5-12.2) fL Immature Gran % (Auto) % Neutrophils % % Lymphocytes % % Monocytes % % Eosinophils % % Basophils % % Immature Gran # (0.00-0.04) 10*3/uL Neutrophils # (1.80-7.70) 10*3/uL Lymphocytes # (0.90-5.00) 10*3/uL Monocytes # (0.20-1.00) 10*3/uL Eosinophils # (0.04-0.35) 10*3/uL Basophils # (0.00-0.10) 10*3/uL PT (10.0-12.5) sec INR (<1.2) APTT (22.0-30.0) sec D-Dimer (<0.60) mg/L FEU Sodium (137-145) mmol/L Potassium (3.5-5.1) mmol/L Chloride (98-107) mmol/L Carbon Dioxide (22-30) mmol/L Anion Gap mmol/L BUN (7-17) mg/dL Creatinine (0.52-1.04) mg/dL Est GFR (CKD-EPI)AfAm (>60 ml/min/1.73 sqM) Est GFR (CKD-EPI)NonAf (>60 ml/min/1.73 sqM) Glucose (74-99) mg/dL Calcium (8.4-10.2) mg/dL Magnesium (1.6-2.3) mg/dL Total Bilirubin (0.2-1.3) mg/dL AST (14-36) U/L ALT (4-34) U/L Alkaline Phosphatase (38-126) U/L Troponin I <0.012 (0.000-0.034) ng/mL NT-Pro-B Natriuret Pep pg/mL Total Protein (6.3-8.2) g/dL Albumin (3.5-5.0) g/dL Lipase (23-300) U/L Urine Color Yellow Urine Appearance Cloudy H (Clear) Urine pH 5.5 (5.0-8.0) Ur Specific [place] 1.027 (1.001-1.035) Urine Protein Trace H (Negative) Urine Glucose (UA) Negative (Negative) Urine Ketones 1+ H (Negative) Urine Blood Negative (Negative) Urine Nitrite Negative (Negative) Urine Bilirubin Negative (Negative) Urine Urobilinogen <2.0 (<2.0) mg/dL Ur Leukocyte Esterase Small H (Negative) Urine RBC 2 (0-5) /hpf Urine WBC 12 H (0-5) /hpf Ur Squamous Epith Cells 5 H (0-4) /hpf Urine Mucus Many H (None) /hpf Serum Alcohol mg/dL Trichomonas Ag (Rapid) Negative (Negative) - EKG Data -: EKG Interpreted by Me EKG Comments: 12-lead Electrocardiogram Interpretation Note EKG was reviewed and interpreted by myself. 12-lead ECG performed at 0730 is interpreted by me as revealing normal sinus rhythm at a rate of 71 beats per minute. [place] is normal. MO interval is 156 ms, QRS durations 86 ms, QTc is 422 ms.. There were no ST or T wave abnormalities to suggest myocardial ischemia or injury. R wave progression across the precordium was satisfactory. By my interpretation this EKG is non-diagnostic for acute ischemia. Disposition Clinical Impression: Bacterial vaginosis, Chest wall pain, Alcohol withdrawal Disposition: HOME SELF-CARE Condition: Good Instructions (If sedation given, give patient instructions): Bacterial Vaginosis (ED), Costochondritis (ED), Alcohol Withdrawal (ED), Chest Wall Pain (ED) Prescriptions: clindamycin HCL 300 mg PO BID 7 Days #14 cap chlordiazePOXIDE HCl [Librium] See Rx Instructions .ROUTE .COMPLEX 5 Days #18 capsule Is patient prescribed a controlled substance at d/c from ED?: Yes When asked, does pt state using other controlled substances?: No If prescribed controlled substance>3 days was MAPS reviewed?: Yes Referrals: Esvin Reed DO [Primary Care Provider] - 1-2 days Time of Disposition: 09:48
[2024-11-25 08:08] LABS: ALT 15 U/L (4-34); AST 24 U/L (14-36); African American GFR (CKD) >90 (>60 ml/min/1.73 sqM); Albumin 4.6 g/dL (3.5-5.0); Alkaline Phosphatase 47 U/L (38-126); Anion Gap 10 mmol/L; Blood Urea Nitrogen 13 mg/dL (7-17); Calcium 9.5 mg/dL (8.4-10.2); Carbon Dioxide 20 mmol/L (22-30); Chloride 108 mmol/L (98-107); Glucose 96 mg/dL (74-99); Lipase 106 U/L (23-300); Magnesium 1.9 mg/dL (1.6-2.3); Non-African American GFR(CKD) 87 (>60 ml/min/1.73 sqM); Potassium 3.8 mmol/L (3.5-5.1); Sodium 138 mmol/L (137-145); Total Protein 7.2 g/dL (6.3-8.2)
[2024-11-25 08:16] LABS: NT-Pro-B-Type Natriuretic Pept 34 pg/mL
--- NOTE | 2024-11-25 08:24 | XR ---
EXAMINATION TYPE: XR chest 2V DATE OF EXAM: 11/25/2024 8:13 AM COMPARISON: Chest radiographs from11/25/2024 CLINICAL INDICATION: Female, 44 years old with history of Chest Pain; TECHNIQUE: XR chest 2V Frontal and lateral views of the chest. FINDINGS: Lungs/Pleura: There is no evidence of pleural effusion, focal consolidation, or pneumothorax. Pulmonary vascularity: Unremarkable. Heart/mediastinum: Cardiomediastinal silhouette is unremarkable. Musculoskeletal: No acute osseous pathology. IMPRESSION: No acute cardiopulmonary disease/process. [facility], , 11/25/2024 8:22 AM
[2024-11-25] MEDS: MORPHINE SULFATE 4 MG/ML SYRINGE IVP STA (08:52)
[2024-11-25 08:55] LABS: Bilirubin,Urine Negative (Negative); Blood,Urine Negative (Negative); Color,Urine Yellow; Glucose,Urine (UA) Negative (Negative); Ketones,Urine 1+ (Negative); Leukocyte Esterase,Urine Small (Negative); Mucus,Urine Many /hpf; Nitrite,Urine Negative (Negative); PH, Urine 5.5 (5.0-8.0); Protein,Urine Trace (Negative); RBC,Urine 2 /hpf (0-5); Specific Gravity,Urine 1.027 (1.001-1.035); Squamous Epithelial Cell,Urine 5 /hpf (0-4); Urobilinogen,Urine <2.0 mg/dL (<2.0); WBC,Urine 12 /hpf (0-5)
[2024-11-25] MEDS: CLINDAMYCIN 150 MG CAP PO STA (10:04)
[2024-11-25 10:09] VITALS: BP 118/77; PULSE 69; TEMP 98.2
[2024-11-26 11:09] LABS: C. trachomatis,PCR Negative (Negative)
[2024-11-26 11:20] LABS: N. gonorrhoeae,PCR Negative (Negative)
== END 2024-11-25 10:12 | disposition home or self-care (01) ==
LOC: EC 07:12
DX: F10.939 Alcohol use, unspecified with withdrawal, unspecified (principal); R07.89 Other chest pain; N76.0 Acute vaginitis; B96.89 Other specified bacterial agents as the cause of diseases classified elsewhere; F17.290 Nicotine dependence, other tobacco product, uncomplicated; Z88.0 Allergy status to penicillin; Z88.1 Allergy status to other antibiotic agents; Z88.2 Allergy status to sulfonamides; Z88.8 Allergy status to other drugs, medicaments and biological substances; Y90.9 Presence of alcohol in blood, level not specified
CPT/HCPCS: 36415; 93005; 85379; 83880; 80053; 83690; 83735; 84484; 85025; 85610; 85730; 81001; 87808; 87491; 87591; 80320; 71046; 99285; 96374; 96375; 96361; J2060; J2270; J2405; J1885